=== PATIENT | male | born 1935 | race Caucasian/White ===

== ENCOUNTER 2017-02-14 16:42 | Inpatient (IN) ==
[2017-02-14] MEDS ORDERED: Bisacodyl 10 MG RECTAL SUPPOSITORY RC PRN (18:15)
[2017-02-14] MEDS ORDERED: Acetaminophen 325 MG TABLET PO PRN (18:15)
[2017-02-14] MEDS ORDERED: diazePAM 5 MG TABLET PO PRN (18:15)
[2017-02-14] MEDS: *HR* OxyCODONE Immed Rel 5 MG TABLET PO PRN (19:46)
[2017-02-14] MEDS: Gabapentin 100 MG CAPSULE PO SCH (19:46)
[2017-02-14] MEDS: Sennosides 8.6 MG TABLET PO SCH (19:46)
[2017-02-15] MEDS: *HR* OxyCODONE Immed Rel 5 MG TABLET PO PRN (04:59)
[2017-02-15 08:02] LABS: Basophils % 0.1 %; Eosinophils # 0.1 K/mcL (0.0-0.6); Hematocrit 30.9 % (37.5-50.1); Hemoglobin 10.8 g/dL (12.9-16.9); Immature Granulocytes % 0.7 % (0-4); Lymphocytes # 1.4 K/mcL (0.6-4.6); Lymphocytes % 19.6 %; Mean Corpuscular Hemoglobin 31.8 pg (28.0-33.3); Mean Corpuscular Volume 90.9 fL (83.0-100.0); Mean Platelet Volume 8.7 fL (9.4-12.4); Monocytes # 0.7 K/mcL (0.0-1.3); Monocytes % 10.6 %; Neutrophils # 4.7 K/mcL (1.6-8.9); Platelet Count 199 K/mcL (140-400); Red Cell Distribution Width 12.4 % (11.5-14.5)
[2017-02-15 08:06] LABS: INR 1.3; Prothrombin Time 14.2 Seconds (9.4-12.1)
[2017-02-15 08:09] LABS: Activated Partial Thrombo Time 26.5 Seconds (26.0-36.0)
[2017-02-15] MEDS: *HR* Enoxaparin 40 MG/0.4 ML SYRINGE SQ SCH (09:01)
[2017-02-15] MEDS: Gabapentin 100 MG CAPSULE PO SCH ×2 (09:01→20:11)
[2017-02-15] MEDS: Cholecalciferol (D-3) 1,000 UNIT TABLET PO SCH (09:01)
[2017-02-15] MEDS: amLODIPine 5 MG TABLET PO SCH (09:01)
[2017-02-15] MEDS: Sennosides 8.6 MG TABLET PO SCH ×2 (09:01→20:11)
[2017-02-15 09:53] LABS: BUN/Creatinine Ratio 17 (6-26); Blood Urea Nitrogen 12 mg/dL (8-26); Calcium 8.8 mg/dL (8.6-10.8); Carbon Dioxide 27 mEq/L (19-29); Chloride 101 mEq/L (98-109); Glucose 112 mg/dL (70-99); Osmolality,Calculated 287 (280-300); Potassium 3.8 mEq/L (3.5-4.5); Sodium 138 mEq/L (136-145); eGFR For African Americans > 60 (> 60); eGFR For Non-African Americans > 60 (> 60)
--- NOTE | 2017-02-15 17:12 | Internal Med History&Physical ---
Date of Encounter: 02/15/17 Time of Encounter: 16:40 Assessment and Plan (1) Cervical stenosis of spine Current visit: Yes Status: Acute He will have PT and OT intervention. He will follow with his spine surgeon as directed. (2) Anemia Current visit: Yes Status: Acute We will order anemia testing in a.m. Qualifiers: Anemia type: unspecified type Qualified Code(s): D64.9 - Anemia, unspecified (3) Hypertension Current visit: Yes Status: Chronic Continue amlodipine. Will monitor blood pressure. Qualifiers: Hypertension type: essential hypertension Qualified Code(s): I10 - Essential (primary) hypertension (4) Neuropathy Current visit: Yes Status: Acute Continue gabapentin. We will check TSH and B12 level and a.m. (5) Hypothyroidism Current visit: Yes Status: Acute Continue Synthroid. Will check TSH in a.m. Qualifiers: Hypothyroidism type: unspecified Qualified Code(s): E03.9 - Hypothyroidism , unspecified Internal Medicine - H&P: HPI Chief complaint: Spine surgery Admitted From: Hospital to Hospital Transfer Plans for Post Hospital Care: Home History of present illness: Mr. Hargrove is a 81 year old male who underwent elective surgery at [facility] for cervical spinal stenosis. His postop course was unremarkable and he was admitted [facility] swing bed for rehabilitation therapy prior to returning to independent living. His musk skeletal history is pertinent for previous bilateral shoulder replacement approximately 2002. He had bilateral carpal tunnel surgery approximately 2003. He denies gout or other bone joint or muscle disorders. Past Med Surg Social Fam HX - Past Medical History Medical history: DVT, hyperlipidemia, hypertension Psychiatric history: no psych history - Past Surgical History Surgical History: IVC Filter - Social History Smoking Status: Never smoker Smokeless Tobacco Status: No Alcohol use: unknown Drug use: none Internal Medicine - H&P: Meds Acetaminophen [Non-Aspirin] 325 mg PO Q6HR PRN 02/14/17 [History] Bisacodyl [Dulcolax] 10 mg RC QDPC PRN 02/14/17 [History] Cholecalciferol (Vitamin D3) [Vitamin D] 1,000 unit PO QDPC 02/14/17 [History] Docusate [Colace] 200 mg PO BID 02/14/17 [History] Enoxaparin [Lovenox] 40 mg SQ DAILY 02/14/17 [History] Gabapentin [Neurontin] 100 mg PO BID 02/14/17 [History] Levothyroxine [Synthroid] 88 mcg PO 0630 02/14/17 [History] OxyCODONE Immed Rel [Roxicodone 5 MG] 5 mg PO Q4HR PRN 02/14/17 [History] Polyethylene Glycol 3350 [MiraLAX] 17 gm PO DAILY 02/14/17 [History] Sennosides [Laxative] 17.2 mg PO BID 02/14/17 [History] Tamsulosin [Flomax] 0.4 mg PO DAILY 02/14/17 [History] amLODIPine [Norvasc] 5 mg PO DAILY 02/14/17 [History] diazePAM [Valium] 5 mg PO Q6HR PRN 02/14/17 [History] 3 Allergy/AdvReac Type Severity Reaction Status Date / Time simvastatin [From Zocor] Allergy Gastrointestinal Verified 02/14/17 17:56 Upset All Systems PM: A 10-system review of systems was performed and is negative for pertinent findings except as documented above in the HPI. Review of systems: Gen.: He states his weight has been stable the past few months Cardiovascular: He has history of hypertension but denies MD or heart failure. He states had a DVT approximately 2011 and was on Coumadin for several weeks. An IVC filter was placed. The cause of the DVT was never discovered. GI: Denies disorders of his liver gallbladder or exocrine pancreas : He has had kidney stones in the past. He was diagnosed with prostate cancer approximately 10 years ago and underwent XRT. He follows regularly with physician for follow-up. He denies other kidney or bladder disorders. Neurologic: He has history of neuropathy but denies large distribution strokes or seizures. Endocrine: He had prostate cancer as mentioned. He denies internal malignancies otherwise. He has hypothyroidism and hyperlipidemia Hematology/oncology: He denies internal malignancies. He was unaware he had anemia on blood work today. Psychiatric: He denies anxiety depression other mental health issues Musculoskeletal: As per history of present illness. - Constitutional Vitals: Temp Pulse Resp BP Pulse Ox 99.1 F 82 18 139/85 92 02/15/17 15:48 02/15/17 15:48 02/15/17 15:48 02/15/17 15:48 02/15/17 15:48 Exam: Gen.: He is a well-developed well-nourished male who appears in no acute distress at present time HEENT: Head is atraumatic and normocephalic. Eyes: EOMI. There is no scleral icterus. Mouth: Mucosa is moist. Neck: He has a longitudinal surgical bandage in place over the posterior midline cervical spine incision. There is no thyromegaly or adenopathy noted. Heart: Regular without murmurs gallops or ectopics Lungs: No wheezes or crackles are heard Abdomen: Soft and nontender. No masses or guarding noted. Extremities: There is no cyanosis edema or clubbing noted. Dorsalis pedis and posttibial pulses are 1-2 over 2 bilaterally. 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 Neurologic: Mental status: He is talkative and a good historian. Cranial nerves : Smile is symmetric. Forehead wrinkles bilaterally. Tongue protrudes midline. EOMI. Motor: There is no pronator drift. Cerebellar: Finger to nose intact bilaterally. Skin: Warm and dry Internal Med - H&P Results - Labs CBC & Chem 7: 02/15/17 07:50 02/15/17 07:50 Labs: Short CBC 02/15/17 Range/Units 07:50 WBC 7.0 (4.3-11.1) K/mcL Hgb 10.8 L (12.9-16.9) g/dL Hct 30.9 L (37.5-50.1) % Plt Count 199 (140-400) K/mcL Neutrophils # 4.7 (1.6-8.9) K/mcL BMP 02/15/17 07:50 Sodium 138 Potassium 3.8 Chloride 101 Carbon Dioxide 27 BUN 12 Creatinine 0.70 L Glucose 112 H Calcium 8.8
[2017-02-16] MEDS: *HR* OxyCODONE Immed Rel 5 MG TABLET PO PRN ×3 (05:14→16:31)
[2017-02-16 06:42] LABS: Thyroid Stimulating Hormone 0.465 mcIU/mL (0.350-4.840)
[2017-02-16] MEDS: Gabapentin 100 MG CAPSULE PO SCH ×2 (09:52→21:05)
[2017-02-16] MEDS: *HR* Enoxaparin 40 MG/0.4 ML SYRINGE SQ SCH (09:52)
[2017-02-16] MEDS: Cholecalciferol (D-3) 1,000 UNIT TABLET PO SCH (09:52)
[2017-02-16] MEDS: amLODIPine 5 MG TABLET PO SCH (09:52)
[2017-02-16] MEDS: Sennosides 8.6 MG TABLET PO SCH (09:52)
--- NOTE | 2017-02-16 11:28 | Internal Med Progress Note ---
Date of Encounter: 02/16/17 Time of Encounter: 11:20 - Assessment and plan (1) Cervical stenosis of spine Current Visit: Yes Status: Acute Assessment and plan: February 16. Continue PT and OT intervention and follow-up with spine surgeon as directed. (2) Anemia Current Visit: Yes Status: Acute Assessment and plan: February 16. Anemia testing is pending Qualifiers: Anemia type: unspecified type Qualified Code(s): D64.9 - Anemia, unspecified (3) Hypertension Current Visit: Yes Status: Chronic Assessment and plan: February 16. Continue amlodipine and monitor blood pressure. Qualifiers: Hypertension type: essential hypertension Qualified Code(s): I10 - Essential (primary) hypertension (4) Neuropathy Current Visit: Yes Status: Acute Assessment and plan: February 16. Continue gabapentin. TSH was normal. B12 level is pending. (5) Hypothyroidism Current Visit: Yes Status: Acute Assessment and plan: February 16. Continue Synthroid. TSH was normal. Qualifiers: Hypothyroidism type: unspecified Qualified Code(s): E03.9 - Hypothyroidism , unspecified - Subjective Interval history: February 16. He states he did not sleep well last night. He also reports some pain in his shoulder at times. - Constitutional Vitals: Temp Pulse Resp BP Pulse Ox 98.6 F 84 94 148/76 95 02/16/17 06:47 02/16/17 06:47 02/16/17 06:47 02/16/17 06:47 02/16/17 06:47 Exam: He was ambulating back from the bathroom using a walker and a nursing officer. His affect is cheerful. He appeared in no acute distress. He was wearing a brace for neck stabilization. Reviewed his medications and lab results. Internal Medicine: Result - Labs CBC & Chem 7: 02/15/17 07:50 02/15/17 07:50 - ABG Interpretation ABG results: PT/INR, D-dimer PT 14.2 Seconds (9.4-12.1) H 02/15/17 07:50 Consult Discharge Plan - Plan Referrals: Glenn Alvarez MD [Primary Care Provider] - 1 week
[2017-02-16] MEDS ORDERED: *HR* LORazepam 1 MG TABLET PO PRN (11:31)
[2017-02-16] MEDS ORDERED: Nystatin POWDER 30 GM BOTTLE TP PRN (11:33)
[2017-02-16 17:59] LABS: Folate 17.1 ng/mL (7.0-31.4)
[2017-02-16] MEDS: traZODone 50 MG TABLET PO SCH (21:05)
[2017-02-17] MEDS: Sennosides 8.6 MG TABLET PO SCH ×3 (06:25→20:08)
[2017-02-17] MEDS: *HR* OxyCODONE Immed Rel 5 MG TABLET PO PRN (08:07)
[2017-02-17] MEDS: Gabapentin 100 MG CAPSULE PO SCH ×2 (08:10→20:08)
[2017-02-17] MEDS: Cholecalciferol (D-3) 1,000 UNIT TABLET PO SCH (08:11)
[2017-02-17] MEDS: amLODIPine 5 MG TABLET PO SCH (08:11)
[2017-02-17] MEDS: *HR* Enoxaparin 40 MG/0.4 ML SYRINGE SQ SCH (08:11)
[2017-02-17] MEDS: Acetaminophen 325 MG TABLET PO PRN ×2 (12:35→20:08)
[2017-02-17] MEDS: traZODone 50 MG TABLET PO SCH (20:09)
[2017-02-18] MEDS: *HR* OxyCODONE Immed Rel 5 MG TABLET PO PRN ×4 (04:32→22:11)
[2017-02-18] MEDS: Sennosides 8.6 MG TABLET PO SCH ×2 (08:45→22:11)
[2017-02-18] MEDS: amLODIPine 5 MG TABLET PO SCH (08:45)
[2017-02-18] MEDS: Cholecalciferol (D-3) 1,000 UNIT TABLET PO SCH (08:46)
[2017-02-18] MEDS: Gabapentin 100 MG CAPSULE PO SCH ×2 (08:46→22:11)
[2017-02-18] MEDS: *HR* Enoxaparin 40 MG/0.4 ML SYRINGE SQ SCH (08:47)
[2017-02-18] MEDS: Acetaminophen 325 MG TABLET PO PRN (17:35)
[2017-02-18] MEDS: traZODone 50 MG TABLET PO SCH (22:10)
[2017-02-19] MEDS: Sennosides 8.6 MG TABLET PO SCH ×2 (08:05→21:23)
[2017-02-19] MEDS: Acetaminophen 325 MG TABLET PO PRN ×2 (08:05→17:41)
[2017-02-19] MEDS: *HR* Enoxaparin 40 MG/0.4 ML SYRINGE SQ SCH (08:06)
[2017-02-19] MEDS: amLODIPine 5 MG TABLET PO SCH (08:06)
[2017-02-19] MEDS: Gabapentin 100 MG CAPSULE PO SCH ×2 (08:06→21:22)
[2017-02-19] MEDS: Cholecalciferol (D-3) 1,000 UNIT TABLET PO SCH (08:06)
--- NOTE | 2017-02-19 09:58 | Internal Med Progress Note ---
Date of Encounter: 02/19/17 Time of Encounter: 09:50 - Assessment and plan (1) Cervical stenosis of spine Current Visit: Yes Status: Acute Assessment and plan: February 16. Continue PT and OT intervention and follow-up with spine surgeon as directed. (2) Anemia Current Visit: Yes Status: Acute Assessment and plan: February 16. Anemia testing is pending February 19. Anemia testing reviewed. Will give trial of ferrous sulfate and vitamin C and monitor CBC. Qualifiers: Anemia type: unspecified type Qualified Code(s): D64.9 - Anemia, unspecified (3) Hypertension Current Visit: Yes Status: Chronic Assessment and plan: February 16. Continue amlodipine and monitor blood pressure. February 19. Blood pressure shows significant fluctuations. Continue amlodipine. Qualifiers: Hypertension type: essential hypertension Qualified Code(s): I10 - Essential (primary) hypertension (4) Neuropathy Current Visit: Yes Status: Acute Assessment and plan: February 16. Continue gabapentin. TSH was normal. B12 level is pending. February 19. Continue gabapentin. B12 level was normal. (5) Hypothyroidism Current Visit: Yes Status: Acute Assessment and plan: February 16. Continue Synthroid. TSH was normal. Qualifiers: Hypothyroidism type: unspecified Qualified Code(s): E03.9 - Hypothyroidism , unspecified - Subjective Interval history: February 16. He states he did not sleep well last night. He also reports some pain in his shoulder at times. February 19. He has no new complaints - Constitutional Vitals: Temp Pulse Resp BP Pulse Ox 98.6 F 93 20 182/72 98 02/19/17 06:54 02/19/17 08:28 02/19/17 08:28 02/19/17 08:28 02/19/17 08:28 Exam: He is resting comfortably in bed. His affect is bright and cheerful. I reviewed his medications and lab results. Internal Medicine: Result - Labs CBC & Chem 7: 02/15/17 07:50 02/15/17 07:50 - ABG Interpretation ABG results: PT/INR, D-dimer PT 14.2 Seconds (9.4-12.1) H 02/15/17 07:50 Consult Discharge Plan - Plan Referrals: Glenn Alvarez MD [Primary Care Provider] - 1 week
[2017-02-19] MEDS: *HR* OxyCODONE Immed Rel 5 MG TABLET PO PRN (21:22)
[2017-02-19] MEDS: traZODone 50 MG TABLET PO SCH (21:23)
[2017-02-20] MEDS: Ascorbic Acid 500 MG TABLET PO SCH ×2 (06:38→08:26)
[2017-02-20] MEDS: *HR* OxyCODONE Immed Rel 5 MG TABLET PO PRN (06:42)
[2017-02-20] MEDS: Sennosides 8.6 MG TABLET PO SCH (08:26)
[2017-02-20] MEDS: Gabapentin 100 MG CAPSULE PO SCH (08:30)
[2017-02-20] MEDS: amLODIPine 5 MG TABLET PO SCH (08:30)
[2017-02-20] MEDS: *HR* Enoxaparin 40 MG/0.4 ML SYRINGE SQ SCH (08:30)
[2017-02-20] MEDS: Cholecalciferol (D-3) 1,000 UNIT TABLET PO SCH (08:30)
[2017-02-21] MEDS: *HR* OxyCODONE Immed Rel 5 MG TABLET PO PRN (00:51)
[2017-02-21] MEDS: traZODone 50 MG TABLET PO SCH ×2 (00:51→19:51)
[2017-02-21] MEDS: Gabapentin 100 MG CAPSULE PO SCH ×3 (00:52→19:51)
[2017-02-21] MEDS: Sennosides 8.6 MG TABLET PO SCH ×3 (05:44→19:59)
[2017-02-21] MEDS: *HR* Enoxaparin 40 MG/0.4 ML SYRINGE SQ SCH (08:27)
[2017-02-21] MEDS: Ascorbic Acid 500 MG TABLET PO SCH (08:29)
[2017-02-21] MEDS: amLODIPine 5 MG TABLET PO SCH (08:29)
[2017-02-21] MEDS: Cholecalciferol (D-3) 1,000 UNIT TABLET PO SCH (08:29)
[2017-02-21] MEDS: Acetaminophen 325 MG TABLET PO PRN (08:34)
--- NOTE | 2017-02-21 10:52 | Internal Med Progress Note ---
Date of Encounter: 02/21/17 Time of Encounter: 10:40 - Assessment and plan (1) Cervical stenosis of spine Current Visit: Yes Status: Acute Assessment and plan: February 16. Continue PT and OT intervention and follow-up with spine surgeon as directed. (2) Anemia Current Visit: Yes Status: Acute Assessment and plan: February 16. Anemia testing is pending February 19. Anemia testing reviewed. Will give trial of ferrous sulfate and vitamin C and monitor CBC. Qualifiers: Anemia type: unspecified type Qualified Code(s): D64.9 - Anemia, unspecified (3) Hypertension Current Visit: Yes Status: Chronic Assessment and plan: February 16. Continue amlodipine and monitor blood pressure. February 19. Blood pressure shows significant fluctuations. Continue amlodipine. Qualifiers: Hypertension type: essential hypertension Qualified Code(s): I10 - Essential (primary) hypertension (4) Neuropathy Current Visit: Yes Status: Acute Assessment and plan: February 16. Continue gabapentin. TSH was normal. B12 level is pending. February 19. Continue gabapentin. B12 level was normal. (5) Hypothyroidism Current Visit: Yes Status: Acute Assessment and plan: February 16. Continue Synthroid. TSH was normal. Qualifiers: Hypothyroidism type: unspecified Qualified Code(s): E03.9 - Hypothyroidism , unspecified - Subjective Interval history: February 16. He states he did not sleep well last night. He also reports some pain in his shoulder at times. February 19. He has no new complaints February 21. He has no new complaints and feels better. He has a follow-up appointment scheduled February 26 with surgeon. Anticipate discharge February 27 - Constitutional Vitals: Temp Pulse Resp BP Pulse Ox 98.1 F 72 17 140/78 96 02/21/17 06:43 02/21/17 07:47 02/21/17 07:47 02/21/17 07:47 02/21/17 07:47 Exam: He is in therapy. He is pleasant and does not appear to be in pain. His affect is bright and cheerful. I reviewed his medications and lab results. Internal Medicine: Result - Labs CBC & Chem 7: 02/15/17 07:50 02/15/17 07:50 - ABG Interpretation ABG results: PT/INR, D-dimer PT 14.2 Seconds (9.4-12.1) H 02/15/17 07:50 Consult Discharge Plan - Plan Referrals: Glenn Alvarez MD [Primary Care Provider] - 1 week
[2017-02-22] MEDS: *HR* OxyCODONE Immed Rel 5 MG TABLET PO PRN ×3 (06:40→20:36)
[2017-02-22] MEDS: Ascorbic Acid 500 MG TABLET PO SCH (09:34)
[2017-02-22] MEDS: Cholecalciferol (D-3) 1,000 UNIT TABLET PO SCH (09:34)
[2017-02-22] MEDS: Acetaminophen 325 MG TABLET PO PRN (09:34)
[2017-02-22] MEDS: amLODIPine 5 MG TABLET PO SCH (09:35)
[2017-02-22] MEDS: *HR* Enoxaparin 40 MG/0.4 ML SYRINGE SQ SCH (09:35)
[2017-02-22] MEDS: Sennosides 8.6 MG TABLET PO SCH ×2 (09:36→20:37)
[2017-02-22] MEDS: Gabapentin 100 MG CAPSULE PO SCH ×2 (09:38→20:36)
[2017-02-22] MEDS: traZODone 50 MG TABLET PO SCH (20:36)
[2017-02-23] MEDS: *HR* Enoxaparin 40 MG/0.4 ML SYRINGE SQ SCH (09:37)
[2017-02-23] MEDS: Gabapentin 100 MG CAPSULE PO SCH ×2 (09:39→22:10)
[2017-02-23] MEDS: Cholecalciferol (D-3) 1,000 UNIT TABLET PO SCH (09:39)
[2017-02-23] MEDS: Ascorbic Acid 500 MG TABLET PO SCH (09:39)
[2017-02-23] MEDS: amLODIPine 5 MG TABLET PO SCH (09:39)
[2017-02-23] MEDS: Sennosides 8.6 MG TABLET PO SCH ×2 (09:40→22:10)
[2017-02-23] MEDS: Acetaminophen 325 MG TABLET PO PRN (09:47)
--- NOTE | 2017-02-23 15:45 | Internal Med Progress Note ---
Date of Encounter: 02/23/17 Time of Encounter: 15:35 - Assessment and plan (1) Cervical stenosis of spine Current Visit: Yes Status: Acute Assessment and plan: February 16. Continue PT and OT intervention and follow-up with spine surgeon as directed. February 23. Continue present intervention. Anticipate discharge home February 27. (2) Anemia Current Visit: Yes Status: Acute Assessment and plan: February 16. Anemia testing is pending February 19. Anemia testing reviewed. Will give trial of ferrous sulfate and vitamin C and monitor CBC. February 23. Will recheck CBC in a.m. Qualifiers: Anemia type: unspecified type Qualified Code(s): D64.9 - Anemia, unspecified (3) Hypertension Current Visit: Yes Status: Chronic Assessment and plan: February 16. Continue amlodipine and monitor blood pressure. February 19. Blood pressure shows significant fluctuations. Continue amlodipine. Qualifiers: Hypertension type: essential hypertension Qualified Code(s): I10 - Essential (primary) hypertension (4) Neuropathy Current Visit: Yes Status: Acute Assessment and plan: February 16. Continue gabapentin. TSH was normal. B12 level is pending. February 19. Continue gabapentin. B12 level was normal. (5) Hypothyroidism Current Visit: Yes Status: Acute Assessment and plan: February 16. Continue Synthroid. TSH was normal. Qualifiers: Hypothyroidism type: unspecified Qualified Code(s): E03.9 - Hypothyroidism , unspecified - Subjective Interval history: February 16. He states he did not sleep well last night. He also reports some pain in his shoulder at times. February 19. He has no new complaints February 21. He has no new complaints and feels better. He has a follow-up appointment scheduled February 26 with surgeon. Anticipate discharge February 27 February 23. He has no new complaints. - Constitutional Vitals: Temp Pulse Resp BP Pulse Ox 97.9 F 58 18 142/73 94 02/23/17 05:46 02/23/17 05:46 02/23/17 05:46 02/23/17 05:46 02/23/17 05:46 Exam: He is resting comfortably in bed. His affect is bright and cheerful. He does not appear to be in pain. I reviewed his medications and lab results. Internal Medicine: Result - Labs CBC & Chem 7: 02/15/17 07:50 02/15/17 07:50 - ABG Interpretation ABG results: PT/INR, D-dimer PT 14.2 Seconds (9.4-12.1) H 02/15/17 07:50 Consult Discharge Plan - Plan Referrals: Glenn Alvarez MD [Primary Care Provider] - 1 week
[2017-02-23] MEDS: traZODone 50 MG TABLET PO SCH (22:10)
[2017-02-24] MEDS: Acetaminophen 325 MG TABLET PO PRN ×2 (06:28→20:21)
[2017-02-24] MEDS: *HR* Enoxaparin 40 MG/0.4 ML SYRINGE SQ SCH (08:32)
[2017-02-24] MEDS: Cholecalciferol (D-3) 1,000 UNIT TABLET PO SCH (08:33)
[2017-02-24] MEDS: amLODIPine 5 MG TABLET PO SCH (08:33)
[2017-02-24] MEDS: Gabapentin 100 MG CAPSULE PO SCH ×2 (08:33→20:20)
[2017-02-24] MEDS: Ascorbic Acid 500 MG TABLET PO SCH (08:33)
[2017-02-24] MEDS: Sennosides 8.6 MG TABLET PO SCH ×2 (08:50→20:42)
[2017-02-24] MEDS: traZODone 50 MG TABLET PO SCH (20:42)
[2017-02-25] MEDS: Acetaminophen 325 MG TABLET PO PRN ×3 (04:56→17:40)
[2017-02-25] MEDS: *HR* Enoxaparin 40 MG/0.4 ML SYRINGE SQ SCH (08:51)
[2017-02-25] MEDS: Ascorbic Acid 500 MG TABLET PO SCH (08:52)
[2017-02-25] MEDS: Gabapentin 100 MG CAPSULE PO SCH ×2 (08:52→20:29)
[2017-02-25] MEDS: amLODIPine 5 MG TABLET PO SCH (08:52)
[2017-02-25] MEDS: Sennosides 8.6 MG TABLET PO SCH ×2 (08:52→20:29)
[2017-02-25] MEDS: Cholecalciferol (D-3) 1,000 UNIT TABLET PO SCH (08:52)
--- NOTE | 2017-02-25 11:10 | Internal Med Progress Note ---
Date of Encounter: 02/25/17 Time of Encounter: 10:45 - Assessment and plan (1) Cervical stenosis of spine Current Visit: Yes Status: Acute Assessment and plan: February 16. Continue PT and OT intervention and follow-up with spine surgeon as directed. February 23. Continue present intervention. Anticipate discharge home February 27. (2) Anemia Current Visit: Yes Status: Acute Assessment and plan: February 16. Anemia testing is pending February 19. Anemia testing reviewed. Will give trial of ferrous sulfate and vitamin C and monitor CBC. February 23. Will recheck CBC in a.m. Qualifiers: Anemia type: unspecified type Qualified Code(s): D64.9 - Anemia, unspecified (3) Hypertension Current Visit: Yes Status: Chronic Assessment and plan: February 16. Continue amlodipine and monitor blood pressure. February 19. Blood pressure shows significant fluctuations. Continue amlodipine. Qualifiers: Hypertension type: essential hypertension Qualified Code(s): I10 - Essential (primary) hypertension (4) Neuropathy Current Visit: Yes Status: Acute Assessment and plan: February 16. Continue gabapentin. TSH was normal. B12 level is pending. February 19. Continue gabapentin. B12 level was normal. (5) Hypothyroidism Current Visit: Yes Status: Acute Assessment and plan: February 16. Continue Synthroid. TSH was normal. Qualifiers: Hypothyroidism type: unspecified Qualified Code(s): E03.9 - Hypothyroidism , unspecified - Subjective Interval history: February 16. He states he did not sleep well last night. He also reports some pain in his shoulder at times. February 19. He has no new complaints February 21. He has no new complaints and feels better. He has a follow-up appointment scheduled February 26 with surgeon. Anticipate discharge February 27 February 23. He has no new complaints. February 25. He has no new complaints. He is scheduled to see the surgeon tomorrow and anticipates discharge 02/27/2017. - Constitutional Vitals: Temp Pulse Resp BP Pulse Ox 98.9 F 77 16 166/82 94 02/25/17 07:12 02/25/17 07:38 02/25/17 07:38 02/25/17 07:38 02/25/17 07:38 Exam: He is sitting in a chair at bedside resting comfortably. His affect is bright and cheerful. He is wearing his neck brace. I reviewed his medications and lab results. Internal Medicine: Result - Labs CBC & Chem 7: 02/15/17 07:50 02/15/17 07:50 - ABG Interpretation ABG results: PT/INR, D-dimer PT 14.2 Seconds (9.4-12.1) H 02/15/17 07:50 Consult Discharge Plan - Plan Referrals: Glenn Alvarez MD [Primary Care Provider] - 1 week
[2017-02-25] MEDS: traZODone 50 MG TABLET PO SCH (20:29)
[2017-02-26] MEDS: Acetaminophen 325 MG TABLET PO PRN ×2 (02:34→08:35)
[2017-02-26 06:17] LABS: Basophils % 0.3 %; Eosinophils # 0.2 K/mcL (0.0-0.6); Hematocrit 34.6 % (37.5-50.1); Hemoglobin 11.7 g/dL (12.9-16.9); Immature Granulocytes % 0.4 % (0-4); Lymphocytes # 1.5 K/mcL (0.6-4.6); Lymphocytes % 21.4 %; Mean Corpuscular HGB Conc 33.8 g/dL (31.6-35.5); Mean Corpuscular Hemoglobin 31.2 pg (28.0-33.3); Mean Corpuscular Volume 92.3 fL (83.0-100.0); Mean Platelet Volume 8.4 fL (9.4-12.4); Monocytes # 0.4 K/mcL (0.0-1.3); Monocytes % 5.7 %; Neutrophils # 4.8 K/mcL (1.6-8.9); Platelet Count 354 K/mcL (140-400); Red Blood Count 3.75 M/mcL (4.19-5.50); Red Cell Distribution Width 12.9 % (11.5-14.5); Segmented Neutrophils % 69.2 %
[2017-02-26] MEDS: *HR* Enoxaparin 40 MG/0.4 ML SYRINGE SQ SCH (08:34)
[2017-02-26] MEDS: Cholecalciferol (D-3) 1,000 UNIT TABLET PO SCH (08:34)
[2017-02-26] MEDS: Gabapentin 100 MG CAPSULE PO SCH ×2 (08:34→21:19)
[2017-02-26] MEDS: amLODIPine 5 MG TABLET PO SCH (08:35)
[2017-02-26] MEDS: Ascorbic Acid 500 MG TABLET PO SCH (08:35)
[2017-02-26] MEDS: Sennosides 8.6 MG TABLET PO SCH ×2 (19:33→21:19)
[2017-02-26] MEDS: traZODone 50 MG TABLET PO SCH (21:19)
[2017-02-27 06:47] VITALS: BP 144/79
[2017-02-27] MEDS: Ascorbic Acid 500 MG TABLET PO SCH (08:19)
[2017-02-27] MEDS: Gabapentin 100 MG CAPSULE PO SCH (08:19)
[2017-02-27] MEDS: amLODIPine 5 MG TABLET PO SCH (08:19)
[2017-02-27] MEDS: Cholecalciferol (D-3) 1,000 UNIT TABLET PO SCH (08:19)
[2017-02-27] MEDS: Sennosides 8.6 MG TABLET PO SCH (08:20)
[2017-02-27] MEDS: *HR* Enoxaparin 40 MG/0.4 ML SYRINGE SQ SCH (08:20)
[2017-02-27] MEDS: Acetaminophen 325 MG TABLET PO PRN (08:22)
--- NOTE | 2017-02-27 09:47 | Discharge Summary ---
Date of Encounter: 02/27/17 Time of Encounter: 09:40 - Discharge Diagnosis (1) Cervical stenosis of spine Priority: Primary Status: Acute (2) Anemia Priority: Secondary Status: Acute Qualifiers: Anemia type: unspecified type Qualified Code(s): D64.9 - Anemia, unspecified (3) Hypertension Priority: Secondary Status: Chronic Qualifiers: Hypertension type: essential hypertension Qualified Code(s): I10 - Essential (primary) hypertension (4) Neuropathy Priority: Secondary Status: Chronic (5) Hypothyroidism Priority: Secondary Status: Chronic Qualifiers: Hypothyroidism type: unspecified Qualified Code(s): E03.9 - Hypothyroidism , unspecified - Discharge Medications Prescriptions: Ascorbic Acid [Vitamin C] 500 mg PO DAILY #30 tab Ferrous Sulfate 325 mg PO DAILY #30 tab Home Medications: Acetaminophen [Non-Aspirin] 325 mg PO Q6HR PRN 02/14/17 [History] Bisacodyl [Dulcolax] 10 mg RC QDPC PRN 02/14/17 [History] Cholecalciferol (Vitamin D3) [Vitamin D3] 1,000 unit PO QDPC 02/14/17 [History] Docusate [Colace] 200 mg PO BID 02/14/17 [History] Gabapentin [Neurontin] 100 mg PO BID 02/14/17 [History] Levothyroxine [Synthroid] 88 mcg PO 0630 02/14/17 [History] Polyethylene Glycol 3350 [MiraLAX] 17 gm PO DAILY 02/14/17 [History] Sennosides [Laxative] 17.2 mg PO BID 02/14/17 [History] Tamsulosin [Flomax] 0.4 mg PO DAILY 02/14/17 [History] amLODIPine [Norvasc] 5 mg PO DAILY 02/14/17 [History] Ascorbic Acid [Vitamin C] 500 mg PO DAILY #30 tab 02/27/17 [Rx] Ferrous Sulfate 325 mg PO DAILY #30 tab 02/27/17 [Rx] Allergies/Adverse Reactions: 3 Allergy/AdvReac Type Severity Reaction Status Date / Time simvastatin [From Zocor] Allergy Gastrointestinal Verified 02/14/17 17:56 Upset Date of admission: 02/14/17 18:38 Primary care physician: Neville Langford D.O. Consults: 02/14/17 17:57 Consult to Occupational Therapy [CONS] Routine Comment: Eval, develop, and implement P.O.C. Reason for Consult: Eval, develop, and implement P.O.C. - spinal fusion Consult to Physical Therapy [CONS] Routine Comment: Eval, develop, and implement P.O.C. Reason for Consult: Eval, develop, and implement P.O.C. - spinal fusion Consult to City Planning Engineer [CONS] Routine Reason for SW Consult: D/C planning - Patient Status Disposition: Home Health Service Overall status at discharge: patient is progressing back to baseline - Discharge Instructions Follow Up With: Neville Langford DO [Non-Partnered Physician] - 1 week - Diet and Activity Activity: as per physical therapy Diet: advance to your usual diet Hospital course: Mr. Hargrove is a 81 year old male who underwent elective surgery at [facility] for cervical spinal stenosis. His postop course was unremarkable and he was admitted [facility] swing bed for rehabilitation therapy prior to returning to independent living. Initial orders were written by the discharging physician at [facility]. I saw him on February 15 and performed a swing bed history and physical. He had physical therapy and occupational therapy evaluations with ongoing intervention. He progressed satisfactorily in therapy. There were no new problems and on February 27 he was stable for discharge home. He will follow with his spine surgeon as directed. Anemia testing showed iron 26, transferrin saturation 11%, transferrin 170, ferritin 580, B12 466, and folate 17.1. He was started on ferrous sulfate with vitamin C and these will be continued at discharge. On the day prior to discharge. Hemoglobin had improved to 11.7 on the day prior to discharge. - Time Spent with Patient Total time spent providing and/or coordinating discharge services: - Constitutional Vitals: Temp Pulse Resp BP Pulse Ox 98.5 F 63 16 144/79 95 02/27/17 06:47 02/27/17 06:47 02/27/17 06:47 02/27/17 06:47 02/27/17 06:47
--- NOTE | 2017-02-27 09:55 | Physician Discharge Referral ---
Home Health/Hosp Referral Info Transfer to: Home Health Attending Provider: Antonio Provider in Charge Post Discharge: PCP (Neville Langford D.O.) - Diagnosis (1) Cervical stenosis of spine Priority: Primary Status: Acute (2) Anemia Priority: Secondary Status: Acute (3) Hypertension Priority: Secondary Status: Chronic (4) Neuropathy Priority: Secondary Status: Chronic (5) Hypothyroidism Priority: Secondary Status: Chronic - Respiratory Orders Smoking Cessation: Smoking cessation has been advised. For more information, call the [place] Tobacco Quit Line at 4-523-QYXD-NOW. - Diet/Nutrition Diet/Nutrition Orders: Regular - Activity Activity Orders: Ambulate - Services Needed Following services are medically necessary services: Nursing, Home Health Aide, Physical Therapy, Occupational Therapy - Transfer Medications Prescriptions: Ascorbic Acid [Vitamin C] 500 mg PO DAILY #30 tab Ferrous Sulfate 325 mg PO DAILY #30 tab Home Medications: Acetaminophen [Non-Aspirin] 325 mg PO Q6HR PRN 02/14/17 [History] Bisacodyl [Dulcolax] 10 mg RC QDPC PRN 02/14/17 [History] Cholecalciferol (Vitamin D3) [Vitamin D3] 1,000 unit PO QDPC 02/14/17 [History] Docusate [Colace] 200 mg PO BID 02/14/17 [History] Gabapentin [Neurontin] 100 mg PO BID 02/14/17 [History] Levothyroxine [Synthroid] 88 mcg PO 0630 02/14/17 [History] Polyethylene Glycol 3350 [MiraLAX] 17 gm PO DAILY 02/14/17 [History] Sennosides [Laxative] 17.2 mg PO BID 02/14/17 [History] Tamsulosin [Flomax] 0.4 mg PO DAILY 02/14/17 [History] amLODIPine [Norvasc] 5 mg PO DAILY 02/14/17 [History] Ascorbic Acid [Vitamin C] 500 mg PO DAILY #30 tab 02/27/17 [Rx] Ferrous Sulfate 325 mg PO DAILY #30 tab 02/27/17 [Rx] Allergies/Adverse Reactions: 3 Allergy/AdvReac Type Severity Reaction Status Date / Time simvastatin [From Zocor] Allergy Gastrointestinal Verified 02/14/17 17:56 Upset Certification: Further, I certify that my clinical findings support that this patient is homebound (i.e. absences from home require considerable and taxing effort and are for medical reasons or sikh services or infrequently or short duration when for other reasons) because: Homebound Reason: Leaving home requires considerable and taxing effort due to condition (Impaired mobility secondary to cervical spine surgery) Attestation: My signature below is to certify that this patient is under my care and that I, or nurse practitioner, or a physician's assistant press operator working with me, has a face-to -face encounter with this patient.
== END 2017-02-27 10:15 | disposition home health service (06) | DRG 950 ==
LOC: INPPIK 18:38
PROVIDERS: ADMIT Internal Medicine; ATTEND Internal Medicine